=== PATIENT | male | born 1960 | race Caucasian/White ===

== ENCOUNTER 2018-02-13 14:28 | Emergency (ER) | payer BC ==
[2018-02-13 14:50] LABS: BASOPHILS % (AUTO) 0.9 % (0.0-5.0); EOSINOPHILS % (AUTO) 1.7 % (0.0-8.0); HEMATOCRIT 41.1 % (42-54); LYMPHOCYTES % (AUTO) 34.3 % (21.0-51.0); MEAN CORPUSCULAR HEMOGLOBIN 30.7 pg (27.0-33.0); MEAN CORPUSCULAR HGB CONC 33.5 g/dL (32.0-36.0); MEAN CORPUSCULAR VOLUME 91.5 fL (79-99); MONOCYTES % (AUTO) 6.6 % (3.0-13.0); NEUTROPHILS % (AUTO) 56.5 % (40.0-77.0); PLATELET COUNT (AUTO) 161 K/uL (130-400); RED BLOOD CELL COUNT(AUTO) 4.49 MIL/uL (4.50-6.20); RED CELL DISTRIBUTION WIDTH 13.1 % (11.0-15.5); WHITE BLOOD COUNT (AUTO) 7.1 K/uL (4.8-10.8)
[2018-02-13 15:01] LABS: CREATININE 1.1 mg/dL (0.5-1.5)
[2018-02-13 15:06] LABS: ALBUMIN 3.7 g/dL (3.5-5.0); BILIRUBIN,TOTAL 0.3 mg/dL (0.2-1.0); TOTAL PROTEIN, SERUM 7.3 g/dL (6.0-8.3)
== END 2018-02-13 18:21 | disposition home or self-care (01) ==
LOC: EDH 14:28
DX: R07.2 Precordial pain (principal); E11.9 Type 2 diabetes mellitus without complications; I10 Essential (primary) hypertension; Z88.1 Allergy status to other antibiotic agents
CPT/HCPCS: 36415; 71045; 80053; 84484; 85025; 93005

== ENCOUNTER 2024-12-28 05:18 | Emergency (ER) | payer BC ==
[~2024-12-28] VITALS: Ht 175.3 cm; Wt 98.9 kg
[~2024-12-28 05:18] MED LIST: APIX5TAB PO; ATOR10 PO; LEVO50CA5 PO; METF-444 PO; METO25 PO
--- NOTE | 2024-12-28 06:06 | ERN ---
General Chief Complaint: Diarrhea Stated Complaint: C/O DIARRHEA X 2 DAYS Time Seen by MD: 05:25 Source: patient History of Present Illness Initial Comments 64-year-old male who had a sudden onset of diarrhea with nausea for the last two days. Worse today than yesterday. No fevers no chills no change in urination habits. He has never experienced his diarrhea to this extent and he comes in for evaluation. Surprisingly he feels it is stopped and right now he is fine. Allergies: Coded Allergies: No Known Drug Allergies (Unverified Allergy, Unknown, 10/25/24) Home Meds Active Scripts Metoprolol Tartrate (Lopressor) 25 Mg Tab, 25 MG PO TID, #90 TAB Prov:JOCELYNE HARRIS MD 10/26/24 Apixaban (Eliquis) 5 Mg Tablet, 5 MG PO BID, #60 TAB Prov:JOCELYNE HARRIS MD 10/26/24 Reported Medications Metformin HCl (Metformin HCl) 500 Mg Tablet, 1 TAB PO BID for 30 Days, #60 TAB 0 Refills 10/25/24 Levothyroxine Sodium (Levothyroxine) 50 Mcg Capsule, 1 CAP PO DAILY for 30 Days, #30 CAP 0 Refills 10/25/24 Atorvastatin Calcium (LIPITOR) 10 Mg Tab, 1 TAB PO DAILY for 30 Days, #30 TAB 0 Refills 10/25/24 Past Medical History Past Medical History: Diabetes-Type II, Hypertension, Hypothyroid Past Surgical History: Other Constitutional: (-) chills, (-) diaphoresis, (-) fever, (-) malaise, (-) weakness, (-) other documentation EENTM: (-) eye pain, (-) blurred vision, (-) tearing, (-) double vision, (-) ear pain, (-) ear discharge, (-) nose pain, (-) nose congestion, (-) throat pain, (-) Throat swelling, (-) mouth pain, (-) tooth pain, (-) mouth swelling, (-) other documentation Respiratory: (-) cough, (-) orthopnea, (-) short of breath, (-) stridor, (-) w heezing, (-) other documentation Cardiovascular: (-) chest pain, (-) edema, (-) palpitations, (-) syncope, (-) dyspnea on exertion, (-) other documentation Gastrointestinal/Abdominal: (+) nausea, (+) diarrhea Genitourinary: (-) penile discharge, (-) dysuria, (-) frequency, (-) hematuria, (-) pain, (-) other documentation Musculoskeletal: (-) Neck pain, (-) back pain, (-) Flank Pain, (-) joint pain, (-) joint swelling, (-) muscle pain, (-) muscle stiffness, (-) gout, (-) other documentation Physical Exam General Appearance: (+) no apparent distress Orientation: (+) alert, (+) oriented x 3 Head/Face Trauma: No Eye: bilateral eye normal inspection, bilateral eye PERRL, bilateral eye EOMI Ear, Nose, Throat: (+) hearing grossly normal, (+) normal ENT inspection, (+) moist mucous membraine Neck: (+) normal inspection, (+) supple, (+) full range of motion Respiratory: (+) chest non-tender, (+) lungs clear, (+) well ventilated Heart: (+) regular, (+) no gallop Vascular: (+) no edema, (+) normal peripheral pulse Gastrointestinal: (+) soft, (+) bowel sound present Results Laboratory and Microbiology Lab and Micro Result Laboratory Tests Test 12/28/24 06:03 White Blood Count 8.8 K/uL (4.8-10.8) Red Blood Count 5.32 MIL/uL (4.50-6.20) Hemoglobin 16.7 g/dL (14.0-18.0) Hematocrit 49.7 % (42-54) Mean Corpuscular Volume 93.4 fL (79-99) Mean Corpuscular Hemoglobin 31.4 pg (27.0-33.0) Mean Corpuscular Hemoglobin Concent 33.6 g/dL (32.0-36.0) Red Cell Distribution Width 13.2 % (11.0-15.5) Platelet Count 185 K/uL (130-400) Mean Platelet Volume 11.3 fL (7.5-10.5) H Immature Granulocyte % (Auto) 0.7 % (0-1) Neutrophils (%) (Auto) 73.4 % (40.0-77.0) Lymphocytes (%) (Auto) 16.5 % (21.0-51.0) L Monocytes (%) (Auto) 7.3 % (3.0-13.0) Eosinophils (%) (Auto) 1.5 % (0.0-8.0) Basophils (%) (Auto) 0.6 % (0.0-5.0) Neutrophils # (Auto) 6.5 K/uL (1.8-7.7) Lymphocytes # (Auto) 1.5 K/uL (1.0-4.8) Monocytes # (Auto) 0.6 K/uL (0.1-1.0) Eosinophils # (Auto) 0.13 K/uL (0.00-0.70) Basophils # (Auto) 0.05 K/uL (0.00-0.20) Absolute Immature Granulocyte (auto 0.06 K/uL (0-1) Nucleated Red Blood Cells 0.0 % (0.0-0.19) Sodium Level 132 mmol/L (136-145) L Potassium Level 4.2 mmol/L (3.5-5.1) Chloride Level 104 mmol/L (101-111) Carbon Dioxide Level 19 mmol/L (21-32) L Blood Urea Nitrogen 23 mg/dL (7-18) H Creatinine 1.3 mg/dL (0.5-1.3) Glomerular Filtration Rate Calc 62 mL/min (>90) Random Glucose 152 mg/dL (70-105) H Total Calcium 9.5 mg/dL (8.5-10.1) MDM MDM: Differential diagnosis: Gastroenteritis, food allergy, dehydration, IBD, Rationale: Tests considered and ordered secondary to shared decision making include: Previous outside records reviewed: Old ER visits. Risk of complication and/or morbidity or mortality of patient management: None Medications-Per medication reconciliation Need for hospitalization: Patient does meet criteria for hospitalization. Need for emergency major/minor surgery: No There are no social concerns with this patient. Prescription drug management Prescriptions will include symptomatic care Patient's prior external medical records from other ER visits were reviewed by me as indicated. Prior testing and results from previous visits were reviewed. Prior tests were taken into account with medical decision making and resource utilization, independent historian/historians were used to obtain complete medical history. I independently interpreted the test that were performed, results were reviewed by me and considered findings on radiology if ordered. Patient has had no diarrhea since coming to the emergency room. His dyspepsia is also much improved. Laboratory analysis shows no electrolyte abnormalities. His CBC is normal. I discussed with the patient his condition and he fell comfortable going home. ED Course Orders Procedure Category Date Status Time Basic Metabolic Panel LAB 12/28/24 Complete 05:51 Cbc With Differential LAB 12/28/24 Complete 05:51 Urinalysis Profile LAB 12/28/24 Logged 05:51 Lactated Ringers PHA 12/28/24 Complete 1000ml (Lactated 05:51 Famotidine 20mg Vial PHA 12/28/24 Complete (Pepcid 20mg Vial) 06:00 Current Medications Medications (Trade) Dose Ordered Sig/Mandy Route PRN Reason Start Time Stop Time Status Last Admin Dose Admin Famotidine (Pepcid 20mg Vial) 20 mg ONCE ONCE IV 12/28/24 06:00 12/28/24 06:01 DC 12/28/24 06:14 Lactated Ringer's (Lactated Ringers 1000ml) 1,000 ml BOLUS STAT IV 12/28/24 05:51 12/28/24 05:56 DC 12/28/24 06:14 Vital Signs Date Time Temp Pulse Resp B/P (MAP) Pulse Ox O2 Delivery O2 Flow Rate FiO2 12/28/24 05:33 96.8 69 20 107/61 98 Room Air* 0 21 12/28/24 05:21 97.7 59 20 107/67 98 Room Air DX & DISP Disposition: Discharge Departure Impression: Primary Impression: Diarrhea Additional Impressions: Gastroenteritis, Food allergy Condition: Stable Additional Instructions: Your diarrhea has resolved. At this point I can not tell you if it was from a viral infection or a food allergy or possibly dehydration. In either case your complete blood count is normal and you have no electrolyte abnormalities. I think you are safe to go home. Please return if your symptoms worsen. Referrals: STEVEN WATERMAN NP (PCP) HIMA CABALLERO MD Dec 28, 2024 06:06
[2024-12-28] MEDS: FAMOTIDINE 20MG VIAL IV ONE (06:14)
[2024-12-28] MEDS: LACTATED RINGERS 1000ML IV STA (06:14)
[2024-12-28 06:16] LABS: IMMATURE GRANULOCYTE ABSOLUTE 0.06 K/uL (0-1); NUCLEATED RED BLOOD CELLS 0.0 % (0.0-0.19); PLATELET COUNT (AUTO) 185 K/uL (130-400); RED BLOOD CELL COUNT(AUTO) 5.32 MIL/uL (4.50-6.20); RED CELL DISTRIBUTION WIDTH 13.2 % (11.0-15.5); WHITE BLOOD COUNT (AUTO) 8.8 K/uL (4.8-10.8)
[2024-12-28 06:45] LABS: CREATININE 1.3 mg/dL (0.5-1.3); GLOMERULAR FILTR. RATE CALC 62.0 mL/min (>90); GLUCOSE,RANDOM 152.0 mg/dL (70-105); SODIUM SERUM 132.0 mmol/L (136-145); UREA NITROGEN, BLOOD 23.0 mg/dL (7-18)
[2024-12-28 07:02] VITALS: BP 106/73; PULSE 70; RESP 20; TEMP 96.8; O2SAT 98
== END 2024-12-28 07:27 | disposition home or self-care (01) ==
LOC: EDH 05:18
DX: K52.9 Noninfective gastroenteritis and colitis, unspecified (principal); E11.9 Type 2 diabetes mellitus without complications; E03.9 Hypothyroidism, unspecified; I10 Essential (primary) hypertension; Z79.01 Long term (current) use of anticoagulants; Z79.84 Long term (current) use of oral hypoglycemic drugs; Z79.890 Hormone replacement therapy; Z79.899 Other long term (current) drug therapy
CPT/HCPCS: 99284; 96374; 96361; 80048; 85025; 36415; J7120; J3490